=== PATIENT | female | born 1985 | race Caucasian/White ===

== ENCOUNTER → 2016-12-28 | Outpatient (CLI) | payer BC, OTHER | LOC: CAT 08:56 | DX: R10.31 Right lower quadrant pain (principal); R10.11 Right upper quadrant pain; R11.0 Nausea ==

== ENCOUNTER → 2018-11-04 | Outpatient (CLI) | payer OTHER | LOC: RAD 13:14 | DX: J98.4 Other disorders of lung (principal); J18.9 Pneumonia, unspecified organism; J45.909 Unspecified asthma, uncomplicated ==

== ENCOUNTER → 2021-03-22 | Outpatient (CLI) | payer BC | LOC: ULTRA 11:03 | PROVIDERS: ATTEND Family Medicine | DX: N83.202 Unspecified ovarian cyst, left side (principal); R10.2 Pelvic and perineal pain ==